=== PATIENT | female | born 1985 | race Caucasian/White ===

== ENCOUNTER 2025-09-03 11:50 | Emergency (ER) | payer BC, OTHER ==
[~2025-09-03] VITALS: Ht 157.5 cm; Wt 68.7 kg
[2025-09-03] MEDS ORDERED: MACR100C43 PO (12:00)
[2025-09-03 12:49] LABS: KETONE, URINE AUTO RFX NEGATIVE (NEGATIVE); LEUKOCYTE ESTERASE UR AUTO RFX NEGATIVE (NEGATIVE); NITRITE, URINE AUTO RFX NEGATIVE (NEGATIVE); RBC, URINE AUTO RFX 0 /HPF (0-3); SQUAM EPITHELIAL CELL UR AURFX 0 /HPF (0-6); WBC, URINE AUTO RFX 2 /HPF (0-3)
[2025-09-03 13:11] LABS: SOFIA COVID ANTIGEN NEGATIVE (NEGATIVE)
[2025-09-03] MEDS ORDERED: OSEL75CA PO (14:38)
[2025-09-03 14:49] VITALS: BP 101/55; TEMP 99.6; O2SAT 97
== END 2025-09-03 14:51 | disposition home or self-care (01) ==
LOC: M ED 11:50
DX: J10.1 Influenza due to other identified influenza virus with other respiratory manifestations (principal); Z79.899 Other long term (current) drug therapy